=== PATIENT | male | born 1980 | race Caucasian/White ===

== ENCOUNTER 2016-08-07 15:51 | Emergency (ER) | payer SELFPAY ==
--- NOTE | 2016-08-07 16:11 | ED Physician Documentation ---
General Adult - HISTORIAN Historian: patient - HPI Chief Complaint: General Adult Further Comments: yes (35 year old male patient present with left jaw pain and pain inside floor of mouth x 3 days. Reports taking 15 aleve today for pain. Parked at truck stoppped and walked to ER.) - ROS CONST: no problems EYES/ENT: none CVS/RESP: none GI/: none MS/SKIN/LYMPH: none NEURO/PSYCH: denies: headache - PAST HX Past History: none Other History: none Allergies/Adverse Reactions: Allergies Allergy/AdvReac Type Severity Reaction Status Date / Time cefaclor [From Ceclor] Allergy Verified 08/07/16 15:59 Home Medications: Ambulatory Orders Medication Instructions Recorded NK [NK] 08/07/16 - SOCIAL HX Smoking History: cigarettes - FAMILY HX Family History: No - REVIEWED ASSESSMENTS Nursing Assessment Reviewed: Yes Vitals Reviewed: Yes Progress - Progress Progress: Walked to Er, 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 General Adult Physical Exam - PHYSICAL EXAM GENERAL APPEARANCE: mild distress EENT: eye inspection normal, DEBRA, other (tenderness over paroid gland and submandibular area; 2-3 mm stone palpable in floor of mouth, cannot visualize stone. Tenderness over parotid gland) CVS: reg rate & rhythm, heart sounds normal, equal pulses, no murmur, no gallop , PMI nml, no JVD, no friction rub, 24 ABDOMEN: soft, no organomegaly, normal bowel sounds, no abdominal bruit, no distension EXTREMITIES: non-tender, normal range of motion, no evidence of injury, no edema , J, [employer] NEURO: oriented X3, CN's nml as tested, motor nml, sensation nml, mood/affect nml Discharge Clincal Impression: Parotitis, acute Referrals: Primary Doctor,No [Primary Care Provider] - 2 Days Additional Instructions: Diagnosis: Parotitis Put heat on the swollen area. Wet a clean wash cloth with warm water and put it on the area. When the wash cloth cools, reheat it with warm water and put it back on. Repeat these steps for 10 to 15 minutes every few hours. Drink lots of fluids. Gently massage the swollen area. Suck on sour or lemon-flavored hard candy. Take an [id number]-ffnpxls medicine to treat your pain. Pain medication and an antibiotic have been sent to the [facility] [place] pharmacy. Do not drive and use ultram limit Ibuprofen to 800mg every 8 hours, alternate with: Tylenol 1 G every 4 hours (do not exceed 4G in 24 hours Home Medications: Ambulatory Orders NK [NK] 08/07/16 Condition: Stable Disposition: HOME, SELF-CARE Decision to Admit: NO Decision Time: 16:10
[2016-08-07 16:30] VITALS: BP 147/95
== END 2016-08-07 16:19 | disposition home or self-care (01) ==
LOC: ED 15:51
DX: K11.21 Acute sialoadenitis (principal)
CPT/HCPCS: 99283